=== PATIENT | male | born 1935 | race Caucasian/White ===

== ENCOUNTER 2017-07-03 07:41 | Emergency (ER) | payer MEDICARE, BC ==
[~2017-07-03] VITALS: Ht 170.2 cm; Wt 90.0 kg
[2017-07-03 07:43] VITALS: BP 124/72; PULSE 83; RESP 14; TEMP 98.9; O2SAT 92
[2017-07-03] MEDS ORDERED: SPIR25TA PO (08:13)
[2017-07-03] MEDS ORDERED: WARF4TAB52 PO (08:13)
[2017-07-03] MEDS ORDERED: FURO20TA PO (08:13)
[2017-07-03] MEDS ORDERED: PRAV20TA2 PO (08:13)
[2017-07-03] MEDS ORDERED: MAGN250T11 PO (08:13)
[2017-07-03] MEDS ORDERED: AMIO200T PO (08:13)
[2017-07-03] MEDS ORDERED: CARV25TA PO (08:13)
[2017-07-03] MEDS ORDERED: LISI10TA3 PO (08:13)
--- NOTE | 2017-07-03 08:17 | PD ---
HPI Chief Complaint: Edema Time Seen by Provider: 07:55 Travel History International Travel<30 days: No Contact w/Intl Traveler<30days: No Traveled to known affect area: No History of Present Illness HPI This patient came to the ER because he had swelling in his left foot. He noticed it last night. This morning it's gone but he wanted to get checked. He says that he is history of pulmonary edema and wanted to make sure that he wasn't getting fluid in his lungs. He denies any shortness of breath. The cough or fever or chest pain. He has history of sleep apnea and uses oxygen and C Pap every night. Symptoms severity is mild. Duration one day. PFSH Past Medical History Cardiovascular Problems: Yes ([place] 2006) Social History Alcohol Use: No Tobacco Use: No Substance Use: No Allergies-Medications (Allergen,Severity, Reaction): Coded Allergies: No Known Allergies (Unverified , 07/03/17) Reported Meds & Prescriptions Reported Meds & Active Scripts Active Reported Pravastatin 20 Mg Tab 20 Mg PO DAILY Warfarin 1 Mg Tab 1.25 Mg PO DAILY Magnesium Oxide 250 Mg Tab 250 Mg PO DAILY Carvedilol 25 Mg Tab 25 Mg PO BID Furosemide 20 Mg Tab 20 Mg PO DAILY Spironolactone 25 Mg Tab 25 Mg PO DAILY Lisinopril 10 Mg Tab 10 Mg PO DAILY Amiodarone (Amiodarone HCl) 200 Mg Tab 200 Mg PO DAILY Review of Systems General / Constitutional: No: Fever Eyes: No: Visual changes HENT: No: Headaches Cardiovascular: Positive: Edema, No: Chest Pain or Discomfort Respiratory: No: Shortness of Breath Gastrointestinal: No: Abdominal Pain Genitourinary: No: Dysuria Musculoskeletal: Positive: Edema, No: Pain Skin: No Rash Neurologic: No: Weakness Psychiatric: No: Depression Endocrine: No: Polydipsia Hematologic/Lymphatic: No: Easy Bruising Physical Exam Narrative GENERAL: Well-nourished, well-developed patient in no apparent distress. SKIN: Focused skin assessment reveals no rash and nodules. Skin is Warm and dry. HEAD: Atraumatic. Normocephalic. EYES: Pupils equal and round. No scleral icterus. No injection or drainage. ENT: No nasal bleeding or discharge. Mucous membranes pink and moist. NECK: Trachea midline. No JVD. CARDIOVASCULAR: Regular rate and rhythm. No murmur appreciated. RESPIRATORY: No accessory muscle use. Clear to auscultation. Breath sounds equal bilaterally. GASTROINTESTINAL: Abdomen soft, non-tender, nondistended. Hepatic and splenic margins not palpable. MUSCULOSKELETAL: No obvious deformities. No clubbing. No cyanosis. No edema. NEUROLOGICAL: Awake and alert. No obvious cranial nerve deficits. Motor grossly within normal limits. Normal speech. PSYCHIATRIC: Appropriate mood and affect; insight and judgment normal. Data Data Last Documented VS Vital Signs Date Time Temp Pulse Resp B/P (MAP) Pulse Ox O2 Delivery O2 Flow Rate FiO2 07/03/17 08:33 95 07/03/17 08:00 Room Air 07/03/17 07:43 98.9 83 14 Orders Orders Chest, Single Ap (07/03/17 ) Electrocardiogram (07/03/17 ) Furosemide (Lasix) (07/03/17 08:45) MDM Medical Decision Making Medical Screen Exam Complete: Yes Emergency Medical Condition: Yes Medical Record Reviewed: Yes Differential Diagnosis Pulmonary edema, CHF, soft tissue injury Narrative Course I have reviewed the patient's electronic medical record. Patient denies injury. I don't see any objective abnormality. There is no erythema or warmth or swelling visible. Patient is concerned about pulmonary edema, he wants a chest x-ray. I reviewed his chest x-ray and the radiologist's interpretation. He is cardiomegaly. There is a hint of pulmonary edema but a scant amount There is no peripheral edema I gave him a dose of 80 mg Lasix oral I reviewed his EKG which shows sinus rhythm with first-degree AV block but no ST elevation or ectopy Patient has no shortness of breath at all and feels fine I don't feel he requires further extensive workup emergently or inpatient stay He has history of CHF and there is no clinical suspicion of ACS I advised him to take another dose of his oral Lasix and 6 hours We discussed fluid limitations Follow-up with his physician but return if he worsens He should track his weight daily Diagnosis Primary Impression: Left leg swelling Additional Impression: Pulmonary edema Qualified Codes: J81.0 - Acute pulmonary edema Additional Instructions: The patient was advised to follow up with their physician and return if they worsen. Check weight daily Take a dose of diuretic at 3 PM today Continue regular dosing in the morning Med/Other Pt SpecificInfo: Other Disposition: DISCHARGE HOME Condition: Stable Jaylon Quispe MD Jul 03, 2017 08:11
--- NOTE | 2017-07-03 08:18 | RADRPT ---
EXAM DATE/TIME: 07/03/2017 08:04 [facility] COMPARISON: No previous studies available for comparison. INDICATIONS : Shortness of breath. MEDICAL HISTORY : Carcinoma, lung. SURGICAL HISTORY : Pacemaker. Right upper lobectomy. ENCOUNTER: Initial ACUITY: 1 day PAIN SCORE: 0/10 LOCATION: Bilateral chest FINDINGS: The heart is enlarged. The lungs demonstrate some mild interstitial prominence. There are small bilat eral effusions. Exam would suggest congestive failure. There is a transvenous pacer in good position. The osseous structures are intact. CONCLUSION: 1. Probable CHF. Neo Morales MD on July 03, 2017 at 8:16 Board Certified Radiologist. This report was verified electronically.
[2017-07-03 08:33] VITALS: O2SAT 95
[2017-07-03] MEDS ORDERED: FUROSEMIDE 80 MG TAB PO ONE (08:45)
[2017-07-03 10:28] VITALS: BP 118/71
--- NOTE | 2017-07-03 12:56 | EKG ---
Date Performed: 07/03/2017 Time Performed: 08:50:24 PTAGE: 81 years EKG: Sinus rhythm WITH FIRST DEGREE AV BLOCK RIGHT BUNDLE BRANCH BLOCK LEFT ANTERIOR FASCICULAR BLOCK ABNORMAL ECG NO PREVIOUS TRACING DOCTOR: David Beltran Interpretating Date/Time 07/03/2017 12:55:17
== END 2017-07-03 10:52 | disposition home or self-care (01) ==
LOC: NEPE 07:41
DX: M79.89 Other specified soft tissue disorders (principal); J81.0 Acute pulmonary edema; R94.31 Abnormal electrocardiogram [ECG] [EKG]
CPT/HCPCS: 71010; 93005